=== PATIENT | female | born 1950 | race Caucasian/White ===

== ENCOUNTER → 2017-09-08 | Outpatient (CLI) | payer MEDICARE, OTHER ==
[2017-09-08 09:21] LABS: BASOPHILS # (AUTO) 0.1 10^3/uL (0.0-0.1); BASOPHILS % (AUTO) 1 % (0-10); EOSINOPHILS # (AUTO) 0.2 10^3/uL (0.0-0.3); EOSINOPHILS % (AUTO) 3 % (0-10); HEMATOCRIT 37 % (35-52); HEMOGLOBIN 12.7 G/DL (11.5-16.0); LYMPHOCYTES # (AUTO) 1.7 X 10^3 (1.0-4.0); LYMPHOCYTES % (AUTO) 36 % (12-44); MEAN CORPUSCULAR HEMOGLOBIN 32 PG (25-34); MEAN CORPUSCULAR HGB CONC 34 G/DL (32-36); MEAN CORPUSCULAR VOLUME 92 FL (80-99); MEAN PLATELET VOLUME 9.5 FL (7.4-10.4); MONOCYTES # (AUTO) 0.3 X 10^3 (0.0-1.0); MONOCYTES % (AUTO) 5 % (0-12); NEUTROPHILS # (AUTO) 2.6 X 10^3 (1.8-7.8); NEUTROPHILS % (AUTO) 54 % (42-75); PLATELET COUNT 297 10^3/uL (130-400); RED BLOOD COUNT 4.02 10^6/uL (4.35-5.85); RED CELL DISTRIBUTION WIDTH 13.6 % (10.0-14.5); WHITE BLOOD COUNT 4.8 10^3/uL (4.3-11.0)
[2017-09-08 09:39] LABS: ALBUMIN 3.9 GM/DL (3.2-4.5); BILIRUBIN,TOTAL 0.4 MG/DL (0.1-1.0); CALCIUM 9.4 MG/DL (8.5-10.1); CREATININE SERUM 0.97 MG/DL (0.60-1.30); POTASSIUM 4.5 MMOL/L (3.6-5.0); TOTAL PROTEIN 6.8 GM/DL (6.4-8.2)
== END ==
LOC: LAB 08:59
PROVIDERS: ATTEND Nurse Practitioner Family
DX: Z00.00 Encounter for general adult medical examination without abnormal findings (principal); I10 Essential (primary) hypertension; R53.83 Other fatigue
CPT/HCPCS: 36415; 80053; 80061; 84443; 85025

== ENCOUNTER 2018-09-23 14:48 | Emergency (ER) | payer MEDICARE, OTHER ==
[~2018-09-23] VITALS: Ht 167.6 cm; Wt 68.0 kg
[2018-09-23] MEDS ORDERED: NS IV 1000 ML 1,000 ML IV STA (14:59)
[2018-09-23] MEDS ORDERED: ASPIRIN 81 MG CHEW (CHILDREN'S ASA) PO ONE (15:00)
[2018-09-23 15:09] LABS: BASOPHILS % (AUTO) 1 % (0-10); EOSINOPHILS # (AUTO) 0.2 10^3/uL (0.0-0.3); EOSINOPHILS % (AUTO) 3 % (0-10); HEMATOCRIT 38 % (35-52); HEMOGLOBIN 12.7 G/DL (11.5-16.0); LYMPHOCYTES # (AUTO) 2.4 X 10^3 (1.0-4.0); LYMPHOCYTES % (AUTO) 39 % (12-44); MEAN CORPUSCULAR HEMOGLOBIN 31 PG (25-34); MEAN CORPUSCULAR HGB CONC 34 G/DL (32-36); MEAN CORPUSCULAR VOLUME 93 FL (80-99); MEAN PLATELET VOLUME 9.5 FL (7.4-10.4); MONOCYTES # (AUTO) 0.5 X 10^3 (0.0-1.0); MONOCYTES % (AUTO) 8 % (0-12); NEUTROPHILS # (AUTO) 3.1 X 10^3 (1.8-7.8); NEUTROPHILS % (AUTO) 50 % (42-75); PLATELET COUNT 305 10^3/uL (130-400); WHITE BLOOD COUNT 6.2 10^3/uL (4.3-11.0)
[2018-09-23 15:23] LABS: PROTHROMBIN TIME PATIENT 12.7 SEC (12.2-14.7)
[2018-09-23 15:30] LABS: ALANINE AMINOTRANSFERASE 22 U/L (0-55); ALBUMIN 4.2 GM/DL (3.2-4.5); ALKALINE PHOSPHATASE 105 U/L (40-136); BILIRUBIN,TOTAL 0.4 MG/DL (0.1-1.0); BUN/CREATININE RATIO 18; CALCIUM 9.5 MG/DL (8.5-10.1); CARBON DIOXIDE 23 MMOL/L (21-32); CHLORIDE 107 MMOL/L (98-107); CREATININE SERUM 1.09 MG/DL (0.60-1.30); GFR ESTIMATED 50; GLUCOSE 81 MG/DL (70-105); MAGNESIUM 2.6 MG/DL (1.8-2.4); POTASSIUM 4.1 MMOL/L (3.6-5.0); SODIUM 142 MMOL/L (135-145); TOTAL PROTEIN 6.9 GM/DL (6.4-8.2)
--- NOTE | 2018-09-23 15:30 | Diagnostic Imaging Report ---
INDICATION: Chest pain COMPARISON: None. FINDINGS: Single view of the chest demonstrate clear lungs bilaterally. The heart size is normal. There is no pneumothorax. Osseous structures are normal. IMPRESSION: No acute findings. Normal chest. Dictated by: Dictated on workstation # [id number]
--- NOTE | 2018-09-23 15:40 | NUR ---
PT RESTING QUIETLY, AT BEDSIDE. PT DENIES ANY C/O AT THIS TIME, PT DOES REPORT IMPROVEMENT. WARM BLANKET TO PT AT THIS TIME.
--- NOTE | 2018-09-23 15:55 | ED General ---
General Chief Complaint: Dizziness/Syncope Stated Complaint: CP/SOA Nursing Triage Note: PT TO ED W/ C/O BACK, SHOULDER, LT ARM ET CHEST PAIN ONSET X5-10 DAYS. ALSO C/ O SOB, DIAPHORESIS ET DIZZINESS ONSET TODAY [facility] PT APPEARS VERY ANXIOUS AT THIS TIME. Nursing Sepsis Screen: No Definite Risk Source of Information: Patient Exam Limitations: No Limitations History of Present Illness Date Seen by Provider: Sep 23, 2018 Time Seen by Provider: 14:50 Initial Comments Here with complaint of left-sided back pain is been going on for about 10 days and left arm pain that has also been going on for about 10 days but recently had about 5 days a left anterior chest pain and then dizziness today. States she was eating at the time and then got dizzy and felt anxious. Denies nausea, vomiting or diaphoresis but feels short of breath. States the shortness of breath has been increasing over the last several days as well. Timing/Duration: 1 Week Severity: Moderate Modifying Factors: improves with Rest Associated Systoms: No Chest Pain, No Cough, No Diaphoresis, No Fever/Chills, No Nausea/Vomiting; Shortness of Air, Weakness Allergies and Home Medications Allergies Coded Allergies: No Known Drug Allergies (Unverified , 09/23/18) Patient Home Medication List Home Medication List Reviewed: Yes Review of Systems Review of Systems Constitutional: see HPI; No chills, No fever EENTM: no symptoms reported Respiratory: short of breath; No wheezing Cardiovascular: chest pain; No palpitations Gastrointestinal: No abdominal pain, No nausea, No vomiting Genitourinary: no symptoms reported Musculoskeletal: see HPI, back pain, joint pain, muscle pain Skin: No change in color, No lesions Psychiatric/Neurological: No Symptoms Reported All Other Systems Reviewed Negative Unless Noted: Yes Past Mpzmgcw-Ajpexd-Oxvjey Hx Past Med/Social Hx: Reviewed Nursing Past Med/Soc Hx Patient Social History Alcohol Use: Denies Use Recreational Drug Use: No Smoking Status: Never a Smoker Recent Foreign Travel: No Contact w/Someone Who Travel: No Recent Infectious Disease Expo: No Physical Abuse: No Sexual Abuse: No Mistreated: No Fear: No Past Medical History Surgeries: No Respiratory: No Cardiac: Yes Hypertension Neurological: No Genitourinary: No Gastrointestinal: No Musculoskeletal: No Endocrine: No HEENT: No Cancer: No Psychosocial: No Integumentary: No Family Medical History Reviewed Nursing Family Hx No Pertinent Family Hx Physical Exam Vital Signs Vital Signs - First Documented 09/23/18 14:53 Temp 96.9 Pulse 66 Resp 22 B/P (MAP) 158/86 (110) Pulse Ox 100 O2 Delivery Room Air Capillary Refill : Less Than 3 Seconds Height, Weight, BMI Height: 5'6.00" Weight: 150lbs. oz. 68.139752li; BMI Method:Stated General Appearance: No Apparent Distress, WD/WN HEENT: PERRL/EOMI, Pharynx Normal Neck: Non Tender, Supple Respiratory: Lungs Clear, Normal Breath Sounds Cardiovascular: Regular Rate, Rhythm, No Murmur Gastrointestinal: Non Tender, Soft Back: Normal Inspection, No CVA Tenderness, No Vertebral Tenderness Extremity: Normal Range of Motion, Non Tender Neurologic/Psychiatric: Alert, Oriented x3 Skin: Normal Color, Warm/Dry Progress/Results/Core Measures Suspected Sepsis Recent Fever Within 48 Hours: No Infection Criteria Present: None New/Unexplained Altered Menta: No Sepsis Screen: No Definite Risk SIRS Temperature:96.9 Pulse: 66 Respiratory Rate: 22 Laboratory Tests 09/23/18 15:01: White Blood Count 6.2 Blood Pressure 158 /86 Mean: 110 Laboratory Tests 09/23/18 15:01: Creatinine 1.09, INR Comment 1.0, Platelet Count 305, Total Bilirubin 0.4 Results/Orders Lab Results Laboratory Tests Test 09/23/18 15:01 Range/Units White Blood Count 6.2 4.3-11.0 10^3/uL Red Blood Count 4.07 L 4.35-5.85 10^6/uL Hemoglobin 12.7 11.5-16.0 G/DL Hematocrit 38 35-52 % Mean Corpuscular Volume 93 80-99 FL Mean Corpuscular Hemoglobin 31 25-34 PG Mean Corpuscular Hemoglobin Concent 34 32-36 G/DL Red Cell Distribution Width 14.0 10.0-14.5 % Platelet Count 305 130-400 10^3/uL Mean Platelet Volume 9.5 7.4-10.4 FL Neutrophils (%) (Auto) 50 42-75 % Lymphocytes (%) (Auto) 39 12-44 % Monocytes (%) (Auto) 8 0-12 % Eosinophils (%) (Auto) 3 0-10 % Basophils (%) (Auto) 1 0-10 % Neutrophils # (Auto) 3.1 1.8-7.8 X 10^3 Lymphocytes # (Auto) 2.4 1.0-4.0 X 10^3 Monocytes # (Auto) 0.5 0.0-1.0 X 10^3 Eosinophils # (Auto) 0.2 0.0-0.3 10^3/uL Basophils # (Auto) 0.0 0.0-0.1 10^3/uL Prothrombin Time 12.7 12.2-14.7 SEC INR Comment 1.0 0.8-1.4 Activated Partial Thromboplast Time 29 24-35 SEC D-Dimer 0.84 H 0.00-0.49 UG/ML Sodium Level 142 135-145 MMOL/L Potassium Level 4.1 3.6-5.0 MMOL/L Chloride Level 107 98-107 MMOL/L Carbon Dioxide Level 23 21-32 MMOL/L Anion Gap 12 5-14 MMOL/L Blood Urea Nitrogen 20 H 7-18 MG/DL Creatinine 1.09 0.60-1.30 MG/DL Estimat Glomerular Filtration Rate 50 BUN/Creatinine Ratio 18 Glucose Level 81 70-105 MG/DL Calcium Level 9.5 8.5-10.1 MG/DL Corrected Calcium 9.3 8.5-10.1 MG/DL Magnesium Level 2.6 H 1.8-2.4 MG/DL Total Bilirubin 0.4 0.1-1.0 MG/DL Aspartate Amino Transf (AST/SGOT) 24 5-34 U/L Alanine Aminotransferase (ALT/SGPT) 22 0-55 U/L Alkaline Phosphatase 105 40-136 U/L Myoglobin 69.0 10.0-92.0 NG/ML Troponin I < 0.028 <0.028 NG/ML B-Type Natriuretic Peptide 56.8 <100.0 PG/ML Total Protein 6.9 6.4-8.2 GM/DL Albumin 4.2 3.2-4.5 GM/DL My Orders Orders - TON TAFOYA MD Cbc With Automated Diff (09/23/18 14:50) Magnesium (09/23/18 14:50) Chest 1 View, Ap/Pa Only (09/23/18 14:50) Ekg Tracing (09/23/18 14:50) Cardiac Profile 1 (2/3/19 14:50) Comprehensive Metabolic Panel (09/23/18 14:50) Myoglobin Serum (09/23/18 14:50) Protime With Inr (09/23/18 14:50) Partial Thromboplastin Time (09/23/18 14:50) O2 (09/23/18 14:50) Monitor-Rhythm Ecg Trace Only (09/23/18 14:50) Lipid Panel (09/24/18 06:00) Saline Lock/Iv-Start (09/23/18 14:50) Ns Iv 1000 Ml (Sodium Chloride 0.9%) (09/23/18 14:59) Aspirin Chewable Tablet (Baby Aspirin Ch (09/23/18 15:00) BNP (09/23/18 14:59) Fibrin Degradation Products (09/23/18 14:59) Medications Given in ED Current Medications Medications Dose Ordered Sig/Kika Route Start Time Stop Time Status Last Admin Dose Admin Aspirin 324 mg ONCE ONCE PO 09/23/18 15:00 09/23/18 15:01 DC 09/23/18 15:06 324 MG Vital Signs/I&O 09/23/18 14:53 Temp 96.9 Pulse 66 Resp 22 B/P (MAP) 158/86 (110) Pulse Ox 100 O2 Delivery Room Air Capillary Refill : Less Than 3 Seconds Blood Pressure Mean: 110 Progress Note : Progress Note Seen and evaluated. IV, labs, EKG and chest x-ray ordered. ASA 324 mg by mouth ordered. Normal saline 1 L bolus. Monitor patient. 1610: Overall much improved. No significant findings on labs, EKG or chest x-ray. Heart rate currently 65 with O2 sat 98 percent on room air and blood pressure 147/74. She will follow-up with her doctor and would like to see Dr. Hills. He is on-call currently. He sees her 's that she would like to follow-up with him. I will send a copy of the chart to Dr. Mayer. Discharged home with return precautions. Patient verbalize understanding instructions and agreement with plan. ECG Initial ECG Impression Date: Sep 23, 2018 Initial ECG Impression Time: 14:51 Initial ECG Rate: 70 Initial ECG Rhythm: Normal Sinus Comment Sinus rhythm with normal axis. No evidence of ST elevation VA. No previous available for comparison. Interpreted by me. Diagnostic Imaging Diagonstic Imaging: Xray Plain Films/CT/US/NM/MRI: chest Comments NAME: DELPHINE FRANKS [facility] REC#: [id number] PT STATUS: REG ER : 1950 PHYSICIAN: TON TAFOYA MD ADMIT DATE: 09/23/18/ER Signed Date of Exam: 09/23/18 CHEST 1 VIEW, AP/PA ONLY INDICATION: Chest pain COMPARISON: None. FINDINGS: Single view of the chest demonstrate clear lungs bilaterally. The heart size is normal. There is no pneumothorax. Osseous structures are normal. IMPRESSION: No acute findings. Normal chest. Dictated by: Dictated on workstation # [id number] Dict: 09/23/18 1530 Trans: 09/23/18 1530 Interpreted by: LAURA GRAY Electronically signed by: LAURA GRAY 09/23/18 1530 Departure Impression Primary Impression: Dizziness Additional Impression: Back pain Qualified Codes: M54.6 - Pain in thoracic spine Disposition: HOME, SELF-CARE Condition: Improved Departure-Patient Inst. Decision time for Depature: 16:14 Referrals: JERAMIE MAYER MD [facility] DWAIN ROQUE MD (PCP/Family) Primary Care Physician Patient Instructions: Dizziness, Nonvertigo, (DC), Upper Back Pain (DC) Add. Discharge Instructions: All discharge instructions reviewed with patient and/or family. Voiced understanding. Drink plenty of fluids. Eat a normal diet. You may take Advil 2 tablets every 6-8 hours as needed for pain. You may also take Tylenol/acetaminophen 1000 mg every 8 hours as needed for pain. Follow-up with your doctor this week for recheck. Follow-up with Dr. Mayer for recheck and further evaluation. Call his office in the morning. Return for worse pain, fever, vomiting, weakness, breathing problems or other concerns as needed. Copy Copies To 1: JERAMIE MAYER MD [facility] Copies To 2: DWAIN ROQUE MD, TIMOTHY D MD Sep 23, 2018 15:55
[2018-09-23 20:07] VITALS: BP 148/84
== END 2018-09-23 16:28 | disposition home or self-care (01) ==
LOC: EDUNIT# 14:48 → ER 14:49
DX: R42 Dizziness and giddiness (principal); M54.9 Dorsalgia, unspecified; R07.9 Chest pain, unspecified; I10 Essential (primary) hypertension
CPT/HCPCS: 36415; 71045; 80053; 83735; 83874; 83880; 84484; 85025; 85379; 85610; 85730; 93041

== ENCOUNTER 2020-04-10 13:17 | Outpatient (CLI) | payer MEDICARE, OTHER ==
[~2020-04-10] VITALS: Ht 167 cm; Wt 68.1 kg
[~2020-04-10 13:17] MED LIST: ENAL20TA PO; SIMV10TA PO
== END 2020-04-10 13:18 | disposition home or self-care (01) ==
LOC: PREOP 13:17
PROVIDERS: ATTEND Internal Medicine
DX: Z01.818 Encounter for other preprocedural examination (principal)

== ENCOUNTER 2020-04-17 07:19 | Day surgery (SDC) | payer MEDICARE, OTHER ==
--- NOTE | 2020-04-07 16:46 | HISTORY AND PHYSICAL ---
DATE OF SERVICE: HISTORY OF PRESENT ILLNESS: The patient is 70-year-old white female, referred for her first screening colonoscopy by Dr. Jeronimo. She previously had been on Dr. Salgado patient. The patient does report father succumbed to what she believes was colon cancer, widely metastatic. He was 72 years of age. She is not aware of any other family history for colon cancer or polyps. She reports no melena or bright red blood per rectum, bowel habit change, abdominal pain or change in weight. PAST SURGICAL HISTORY: Significant for tonsillectomy and adenoidectomy at the age of 3. SOCIAL HISTORY: The patient is retired. She has no past smoking or drinking history. FAMILY HISTORY: Mother at the age of 89 of vulvar carcinoma. Father at the age of 72, widely metastatic colon cancer. She has one sister alive and well. Three brothers, one has COPD and sleep apnea living at the age of 66, other 59 is HIV positive and one brother in his early 60s, alive and well. PAST MEDICAL HISTORY: Significant for hypertension and hyperlipidemia with no known history of vascular disease. PHYSICAL EXAMINATION: GENERAL: Reveals a white female, appears to be in no acute distress. VITAL SIGNS: Weight 153.4 pounds. Blood pressure 130/80. HEENT: Unremarkable. Mallampati 2 oropharyngeal configuration. CHEST: Clear to auscultation. CARDIOVASCULAR: Revealed a regular rate and rhythm without murmur, S3 or S4. ABDOMEN: Soft, supple without mass, organomegaly or tenderness. EXTREMITIES: Reveal no cyanosis, clubbing or edema. ASSESSMENT AND PLAN: The patient is set up for screening colonoscopy on 04/17/2020, deemed to be of higher than average risk, considering her father succumbed to colon cancer at the age of 72. Prep instructions with Suprep kit were given and questions were answered. I thank you for the referral of this pleasant lady. Job ID: [id number] DocumentID: [id number] Dictated Date: 04/06/2020 17:30:42 Heel Dipper Date: 04/06/2020 17:43:41 Dictated By: ANILA FITZPATRICK MD
[~2020-04-17] VITALS: Ht 167 cm; Wt 68.1 kg
[2020-04-17] VITALS (8 sets, daily range): BP systolic 84–148; BP diastolic 48–87
[~2020-04-17 07:19] MED LIST changes: +PROPOFOL INJECTION 50 ML IV ONE
[2020-04-17] MEDS ORDERED: LACTATED RINGERS 1,000 ML IV ONE ×2 (07:23→07:45)
[2020-04-17] MEDS ORDERED: LACTATED RINGERS 1,000 ML IV STA (07:24)
[2020-04-17] MEDS ORDERED: LIDOCAINE JELLY 2% 6 ML SYRINGE MM PRN (07:30)
[2020-04-17] MEDS ORDERED: LIDOCAINE JELLY 2% 6 ML SYRINGE ONE (07:55)
--- NOTE | 2020-04-17 08:31 | Pre-Op Note & Conscious Sedat ---
Pre-Operative Progress Note H&P Reviewed The H&P was reviewed, patient examined and no changes noted. Date H&P Reviewed: Apr 17, 2020 Time H&P Reviewed: 07:35 Conscious Sedation Pre-Proced ASA Score 2 For ASA 3 and 4: Consider anesthesia and medical clearance. Also, for patients with a history of failed moderate sedation consider anesthesia. Airway Lungs Heart ASA score ASA 1: a normal healthy patient ASA 2: a patient with a mild systemic disease (mid diabetes, controlled hypertension, obesity ASA 3: a patient with a severe systemic disease that limits activity (angina, COPD, prior Myocardial infarction) ASA 4: a patient with an incapacitating disease that is a constant threat to life (CHF, renal failure) ASA 5: a moribund patient not expected to survive 24 hrs. (ruptured aneurysm) ASA 6: a declared brain- patient whose organs are being harvested. For emergent operations, add the letter E after the classification Mallampati Classification Grade 2 Sedation Plan Analgesia, Amnesia, Plan communicated to team members, Discussed options with patient/fam, Discussed risks with patient/fam The patient is an appropriate candidate to undergo the planned procedure, sedation, and anesthesia. The patient immediately re-assessed prior to indication. ANILA FITZPATRICK MD Apr 17, 2020 08:31
--- NOTE | 2020-04-17 11:30 | Anesthesia-General Post-Op ---
MAC Patient Condition Mental Status/LOC: Same as Preop Cardiovascular: Satisfactory Nausea/Vomiting: Absent Respiratory: Satisfactory Pain: Controlled Complications: Absent Post Op Complications Complications None Follow Up Care/Instructions Patient Instructions None needed. Anesthesiology Discharge Order Discharge Order Patient is doing well, no complaints, stable vital signs, no apparent adverse anesthesia problems. No complications reported per nursing. NERY REYNA CRNA Apr 17, 2020 11:30
--- NOTE | 2020-04-17 17:19 | OPERATIVE REPORT ---
DATE OF SERVICE: COLONOSCOPY SUMMARY INDICATION FOR THE PROCEDURE: Screening colonoscopy. DESCRIPTION OF PROCEDURE: The patient was placed in the left lateral decubitus position. Prior to undergoing colonoscopy, digital rectal evaluation was performed. Anal sphincter tone was normal and the perianal reflex was intact. The patient did have a patch of perianal vitiligo. No abnormalities were noted on digital inspection of anal canal or distal rectal vault. The colonoscope was then inserted into the rectum and under direct visualization advanced to the cecum. The cecum was identified by identification of the ileocecal valve and cecal strap. Photographic documentation was obtained. Careful inspection was made as colonoscope was withdrawn. Quality of the prep was good. The patient tolerated the procedure well under Diprivan based anesthesia. FINDINGS: There was no evidence for internal or external hemorrhoids and the rectum was unremarkable. Haustral hypertrophy with a moderate number of small to medium size sigmoid diverticulum were present. No evidence for diverticulitis was noted. The descending colon, splenic flexure, transverse colon, hepatic flexure, ascending colon and cecum were unremarkable. ASSESSMENT: 1. Moderate diverticular disease confined to the sigmoid colon was present without evidence for diverticulitis. 2. No evidence for neoplasia was identified. Considering this patient's family history, I would advocate consideration for repeat screening colonoscopy in 5 years provided her health remains good. 3. The patient did have a patch of perianal vitiligo with no other perianal abnormalities being noted. Job ID: [id number] DocumentID: [id number] Dictated Date: 04/17/2020 09:20:04 Resource Recovery Engineer Date: 04/17/2020 17:18:34 Dictated By: ANILA FITZPATRICK MD
== END 2020-04-17 09:40 | disposition home or self-care (01) ==
LOC: ENDO 07:19
PROVIDERS: ATTEND Internal Medicine
DX: Z12.11 Encounter for screening for malignant neoplasm of colon (principal); K57.30 Diverticulosis of large intestine without perforation or abscess without bleeding; I10 Essential (primary) hypertension; E78.5 Hyperlipidemia, unspecified; Z79.899 Other long term (current) drug therapy; Z80.0 Family history of malignant neoplasm of digestive organs; Z80.49 Family history of malignant neoplasm of other genital organs

== ENCOUNTER 2020-12-03 09:14 | Outpatient (RCR) | payer MEDICARE, OTHER ==
[~2020-12-03 09:14] MED LIST changes: -ENAL20TA PO; +ENAL20TA16 PO; -PROPOFOL INJECTION 50 ML IV ONE
== END 2021-01-04 09:33 | disposition home or self-care (01) ==
PROVIDERS: ATTEND Internal Medicine
DX: R35.0 Frequency of micturition (principal); R29.898 Other symptoms and signs involving the musculoskeletal system

== ENCOUNTER → 2021-05-31 | Outpatient (CLI) | payer MEDICARE, OTHER ==
--- NOTE | 2021-05-31 13:26 | Diagnostic Imaging Report ---
INDICATION: Routine screening. Comparison is made with prior mammogram 11/18/2014. 2-D and 3-D bilateral screening mammography was performed with CAD. Both breasts are heterogeneously dense, limiting the sensitivity of mammography. There are scattered benign calcifications. No mass or malignant-appearing microcalcifications are seen. Axillae are unremarkable. IMPRESSION: BI-RADS Category 2 No mammographic features suspicious for malignancy are identified. ACR BI-RADS Category 2: Benign findings. Result letter will be mailed to the patient. Note: At least 10% of breast cancer is not imaged by mammography. Dictated by: Dictated on workstation # [id number]
== END ==
LOC: RAD 09:02
PROVIDERS: ATTEND Physician Assistant
DX: Z12.31 Encounter for screening mammogram for malignant neoplasm of breast (principal)
CPT/HCPCS: 77063; 77067

== ENCOUNTER → 2022-06-07 | Outpatient (CLI) | payer MEDICARE, OTHER ==
[~2022-06-07] MED LIST changes: +SIMV-332 PO; -SIMV10TA PO
--- NOTE | 2022-06-07 13:38 | Diagnostic Imaging Report ---
Indication: Routine screening. Comparison is made with prior mammogram from 05/31/2021 and 11/18/2014. 2-D and 3-D bilateral screening mammography was performed with CAD. CAD is utilized. The current study was also evaluated with a Computer Aided Detection (CAD) system. Both breasts are heterogeneously dense, limiting the sensitivity of mammography. There are occasional benign calcifications in both breasts. No mass or malignant-appearing microcalcifications are identified. The axillae are unremarkable. IMPRESSION: BI-RADS Category 2 No mammographic features suspicious for malignancy are identified. ACR BI-RADS Category 2: Benign findings. Result letter will be mailed to the patient. Note: At least 10% of breast cancer is not imaged by mammography. Dictated by: Dictated on workstation # [id number]
== END ==
LOC: RAD 07:55
PROVIDERS: ATTEND Physician Assistant
DX: Z12.31 Encounter for screening mammogram for malignant neoplasm of breast (principal)
CPT/HCPCS: 77063; 77067

== ENCOUNTER → 2022-08-05 | Outpatient (CLI) | payer MEDICARE, OTHER | LOC: CARD 09:07 | PROVIDERS: ATTEND Internal Medicine Cardiovascular Disease | DX: I35.1 Nonrheumatic aortic (valve) insufficiency (principal); I10 Essential (primary) hypertension; I25.10 Atherosclerotic heart disease of native coronary artery without angina pectoris | CPT/HCPCS: 93306 ==

== ENCOUNTER 2022-11-20 10:07 | Emergency (ER) | payer MEDICARE, OTHER ==
[~2022-11-20] VITALS: Ht 167.7 cm; Wt 70.3 kg
[2022-11-20] MEDS ORDERED: NS IV 500 ML 500 ML IV ONE ×2 (10:30→12:15)
--- NOTE | 2022-11-20 10:31 | ED General ---
General Chief Complaint: General Problems/Pain Stated Complaint: HEADACHE Nursing Triage Note: PT TO [facility] WITH C/O FEELING FAINT AT [facility] THIS MORNING AND A SMITH ALL MORNING. PT FEELS DIZZY. BS REPORTED FROM EMS WAS 125 Source of Information: Patient Exam Limitations: No Limitations History of Present Illness Date Seen by Provider: Nov 20, 2022 Time Seen by Provider: 10:11 Initial Comments Here by EMS reports that they were called due to patient nearly passing out in scientologist. On their arrival, she was laying on the pew and feeling a little bett er. They did check blood sugar and noted it to be 125. Overall she is feeling a little better now. She apparently did not eat breakfast this morning and did have a headache. She denies chest pain or breathing problems. She is feeling a little better now. Patient states that she was sitting in scientologist when she started feeling hot so she took off her jacket. She then started feeling dizzy and felt like she was going to pass out. Another one of her scientologist friends then asked if she was feeling all right and then had her lay down on the pew. That is when EMS was called. Patient denies nausea, vomiting, diarrhea or chest pain. Denies fever or chills. Timing/Duration: 1 Hour, Changing Over Time Severity: Moderate Modifying Factors: improves with Rest Associated Systoms: No Chest Pain, No Cough, No Fever/Chills; Headaches; No Nausea/Vomiting, No Shortness of Air; Syncope, Weakness Allergies and Home Medications Allergies Coded Allergies: No Known Drug Allergies (Unverified , 04/10/20) Patient Home Medication List Home Medication List Reviewed: Yes Enalapril Maleate (Enalapril Maleate) 20 Mg Tablet, 20 MG PO DAILY, (Reported) Entered as Reported by: ABILIO BENTON on 04/10/20 1316 Simvastatin (Zocor) 10 Mg Tablet, 10 MG PO DAILY, (Reported) Entered as Reported by: ABILIO BENTON on 04/10/20 1316 Review of Systems Review of Systems Constitutional: see HPI; No chills, No fever EENTM: no symptoms reported Respiratory: No cough, No short of breath Cardiovascular: see HPI; No chest pain, No palpitations Gastrointestinal: No nausea, No vomiting Genitourinary: no symptoms reported Musculoskeletal: back pain (Chronic spasm pain that is to the right side of her back up to her shoulder blade and down her back. She states that she has this frequently and that is not different. It may be a little worse today) Skin: no symptoms reported Psychiatric/Neurological: See HPI Past Otragek-Sevhst-Cpsldb Hx Patient Social History Tobacco Use?: No Use of E-Cig and/or Vaping dev: No Substance use?: No Alcohol Use?: No Pt feels they are or have been: No Immunizations Up To Date Tetanus Booster (TDap): Unknown Influenza Vaccine Up-to-Date: Yes; Up-to-Date First/Initial COVID19 Vaccinat: YES Second COVID19 Vaccination Isma: YES Seasonal Allergies Seasonal Allergies: Yes Past Medical History Surgery/Hospitalization HX: HTN TONSILS Surgeries: Yes Tonsillectomy Respiratory: No Cardiac: Yes High Cholesterol, Hypertension Neurological: No Sexually Transmitted Disease: No HIV/AIDS: No Genitourinary: No Gastrointestinal: No Musculoskeletal: No Endocrine: No HEENT: Yes (GLASSES, PARTIAL DENTURE) Loss of Vision: Denies Hearing Impairment: Denies Cancer: No Psychosocial: No Integumentary: No Blood Disorders: No Adverse Reaction/Blood Tranf: No (N/A) Family Medical History Reviewed Nursing Family Hx No Pertinent Family Hx Physical Exam Vital Signs Vital Signs - First Documented 11/20/22 10:10 Temp 36.4 Pulse 65 Resp 24 B/P (MAP) 130/87 (101) Capillary Refill : Height, Weight, BMI Height: 5'6.00" Weight: 150lbs. oz. 68.957397fx; 24.00 BMI Method:Stated General Appearance: No Apparent Distress, WD/WN HEENT: PERRL/EOMI, Pharynx Normal Neck: Non Tender, Supple Respiratory: Lungs Clear, Normal Breath Sounds Cardiovascular: Regular Rate, Rhythm, No Murmur Gastrointestinal: Non Tender, Soft Extremity: Normal Range of Motion, Non Tender Neurologic/Psychiatric: Alert, Oriented x3 Skin: Normal Color, Warm/Dry Progress/Results/Core Measures Suspected Sepsis SIRS Temperature: Pulse: 65 Respiratory Rate: 24 Laboratory Tests 11/20/22 10:32: White Blood Count 8.3 Blood Pressure 130 /87 Mean: 101 Laboratory Tests 11/20/22 10:32: Creatinine 1.55H, Platelet Count 318, Total Bilirubin 0.6 Results/Orders Lab Results Laboratory Tests Test 11/20/22 10:32 11/20/22 11:25 Range/Units White Blood Count 8.3 4.3-11.0 10^3/uL Red Blood Count 3.78 L 3.80-5.11 10^6/uL Hemoglobin 12.1 11.5-16.0 g/dL Hematocrit 35 35-52 % Mean Corpuscular Volume 91 80-99 fL Mean Corpuscular Hemoglobin 32 25-34 pg Mean Corpuscular Hemoglobin Concent 35 32-36 g/dL Red Cell Distribution Width 13.1 10.0-14.5 % Platelet Count 318 130-400 10^3/uL Mean Platelet Volume 9.2 9.0-12.2 fL Immature Granulocyte % (Auto) 0 % Neutrophils (%) (Auto) 72 42-75 % Lymphocytes (%) (Auto) 21 12-44 % Monocytes (%) (Auto) 5 0-12 % Eosinophils (%) (Auto) 1 0-10 % Basophils (%) (Auto) 1 0-10 % Neutrophils # (Auto) 6.0 1.8-7.8 10^3/uL Lymphocytes # (Auto) 1.8 1.0-4.0 10^3/uL Monocytes # (Auto) 0.4 0.0-1.0 10^3/uL Eosinophils # (Auto) 0.1 0.0-0.3 10^3/uL Basophils # (Auto) 0.0 0.0-0.1 10^3/uL Immature Granulocyte # (Auto) 0.0 0.0-0.1 10^3/uL Sodium Level 140 135-145 MMOL/L Potassium Level 4.3 3.6-5.0 MMOL/L Chloride Level 110 H 98-107 MMOL/L Carbon Dioxide Level 18 L 21-32 MMOL/L Anion Gap 12 5-14 MMOL/L Blood Urea Nitrogen 19 H 7-18 MG/DL Creatinine 1.55 H 0.60-1.30 MG/DL Estimat Glomerular Filtration Rate 35 BUN/Creatinine Ratio 12 Glucose Level 105 70-105 MG/DL Calcium Level 9.4 8.5-10.1 MG/DL Corrected Calcium 9.4 8.5-10.1 MG/DL Total Bilirubin 0.6 0.1-1.0 MG/DL Aspartate Amino Transf (AST/SGOT) 20 5-34 U/L Alanine Aminotransferase (ALT/SGPT) 22 0-55 U/L Alkaline Phosphatase 82 40-136 U/L Troponin I < 0.028 <0.028 NG/ML Total Protein 6.6 6.4-8.2 GM/DL Albumin 4.0 3.2-4.5 GM/DL Urine Color YELLOW Urine Clarity CLEAR Urine pH 8.0 5-9 Urine Specific [place] 1.015 L 1.016-1.022 Urine Protein TRACE H NEGATIVE Urine Glucose (UA) NEGATIVE NEGATIVE Urine Ketones NEGATIVE NEGATIVE Urine Nitrite NEGATIVE NEGATIVE Urine Bilirubin NEGATIVE NEGATIVE Urine Urobilinogen 0.2 < = 1.0 MG/DL Urine Leukocyte Esterase 2+ H NEGATIVE Urine RBC (Auto) NEGATIVE NEGATIVE Urine RBC NONE /HPF Urine WBC 2-5 /HPF Urine Squamous Epithelial Cells 5-10 /HPF Urine Crystals NONE /LPF Urine Bacteria NEGATIVE /HPF Urine Casts PRESENT /LPF Urine Hyaline Casts 5-10 H /LPF Urine Mucus NEGATIVE /LPF Urine Culture Indicated NO My Orders Orders - TON TAFOYA MD Cbc With Automated Diff (11/20/22 10:17) Comprehensive Metabolic Panel (11/20/22 10:17) Troponin I [place] (11/20/22 10:17) Ua Culture If Indicated (11/20/22 10:17) Chest 1 View, Ap/Pa Only (11/20/22 10:17) Ekg Tracing (11/20/22 10:17) Monitor-Rhythm Ecg Trace Only (11/20/22 10:17) Ed Iv/Invasive Line Start (11/20/22 10:17) Ns Iv 500 Ml (Sodium Chloride 0.9%) (11/20/22 10:30) Ed Iv/Invasive Line Start (11/20/22 12:07) Ns Iv 500 Ml (Sodium Chloride 0.9%) (11/20/22 12:15) Ketorolac Injection (Toradol Injection) (11/20/22 12:07) Medications Given in ED Current Medications Medications Dose Ordered Sig/Kika Route Start Time Stop Time Status Last Admin Dose Admin Sodium Chloride 500 ml @ 0 mls/hr Q0M ONCE IV 11/20/22 10:30 11/20/22 10:31 DC 11/20/22 10:33 1,000 MLS/HR Sodium Chloride 500 ml @ 0 mls/hr Q0M ONCE IV 11/20/22 12:15 11/20/22 12:16 DC 11/20/22 12:22 1,000 MLS/HR Vital Signs/I&O 11/20/22 10:10 Temp 36.4 Pulse 65 Resp 24 B/P (MAP) 130/87 (101) Capillary Refill : Blood Pressure Mean: 101 Progress Note : Progress Note Seen and evaluated. IV, labs including CBC, CMP, magnesium and troponin ordered. Normal saline 500 mL bolus. EKG and chest x-ray ordered. Monitor patient. Differential includes cardiac event, electrolyte abnormality, dehydration, UTI 1120: Remains improved. Chest x-ray reviewed by me and shows no acute findings. EKG done and compared to 09/23/2018 and shows no acute findings. See below for interpretation. CBC is grossly normal. Chemistry does show slight elevation of serum creatinine which is greater than previous as she is normally normal. Creatinine level right now is 1.55. Troponin is negative. Pending UA. Monitor patient. 1142: Patient has asked for and was given water to drink. She tolerated that well. 1210: We will go ahead and repeat normal saline 500 mL bolus and give Toradol 15 mg IV. Patient feels comfortable going after that. We did discuss [id number]-giv-[id number] therapy for her back pain. I believe this was dehydration that caused the event. This was discussed with the patient. Discharged home with return precautions. Patient verbalized understanding instructions and agreement with plan. ECG Initial ECG Impression Date: Nov 20, 2022 Initial ECG Impression Time: 10:26 Initial ECG Rate: 61 Initial ECG Rhythm: Normal Sinus Comment Sinus rhythm with normal axis. No evidence of ST elevation [place]. Similar to pre vious of 09/23/2018. Interpreted by me. Diagnostic Imaging Diagonstic Imaging: Xray Plain Films/CT/US/NM/MRI: chest Comments [facility], [place] NAME: DELPHINE FRANKS Alexi [facility] REC#: [id number] PT STATUS: REG ER : 1950 PHYSICIAN: TON TAFOYA MD ADMIT DATE: 11/20/22/ER Draft Date of Exam:04/02/23 CHEST 1 VIEW, AP/PA ONLY INDICATION: Followup dizziness and presyncopal episode. COMPARISON: 09/23/2018. DISCUSSION: A single portable upright view of the chest was obtained. Elevated right hemidiaphragm. Normal heart size. No consolidation, pleural fluid, or pneumothorax. No osseous abnormality. IMPRESSION: Negative chest. Dictated on workstation # [id number] Dict: 11/20/22 1100 Trans: 11/20/22 1112 [id number] Interpreted by: PHYLLIS JUAREZ MD Electronically signed by: Departure Impression Primary Impression: Dehydration Additional Impression: Dizziness Disposition: HOME, SELF-CARE Condition: Improved Departure-Patient Inst. Decision time for Depature: 12:13 Referrals: ZAYNAB ASHTON MD (PCP/Family) Primary Care Physician Patient Instructions: Dizziness, Adult ED, Dehydration, Adult (DC) Add. Discharge Instructions: All discharge instructions reviewed with patient and/or family. Voiced understanding. Treat plenty of fluids by taking small sips frequently. Follow-up with your doctor in a few days for recheck. Continue home medications as previously prescribed. You may use [id number] IcyHot with lidocaine cream, Aspercreme with lidocaine cream or similar agents to area of back pain per package directions. Return for worse pain, fever, vomiting, weakness, breathing problems or other concerns as needed. TON TAFOYA MD Nov 20, 2022 10:31
[2022-11-20 10:40] LABS: HEMATOCRIT 35 % (35-52); HEMOGLOBIN 12.1 g/dL (11.5-16.0); WHITE BLOOD COUNT 8.3 10^3/uL (4.3-11.0)
[2022-11-20 10:41] LABS: BASOPHILS % (AUTO) 1 % (0-10); EOSINOPHILS # (AUTO) 0.1 10^3/uL (0.0-0.3); EOSINOPHILS % (AUTO) 1 % (0-10); LYMPHOCYTES # (AUTO) 1.8 10^3/uL (1.0-4.0); LYMPHOCYTES % (AUTO) 21 % (12-44); MEAN CORPUSCULAR HEMOGLOBIN 32 pg (25-34); MEAN CORPUSCULAR HGB CONC 35 g/dL (32-36); MEAN CORPUSCULAR VOLUME 91 fL (80-99); MEAN PLATELET VOLUME 9.2 fL (9.0-12.2); MONOCYTES # (AUTO) 0.4 10^3/uL (0.0-1.0); MONOCYTES % (AUTO) 5 % (0-12); NEUTROPHILS % (AUTO) 72 % (42-75); PLATELET COUNT 318 10^3/uL (130-400)
[2022-11-20 10:51] LABS: CHLORIDE 110 MMOL/L (98-107); POTASSIUM 4.3 MMOL/L (3.6-5.0); SODIUM 140 MMOL/L (135-145)
[2022-11-20 10:52] LABS: CALCIUM 9.4 MG/DL (8.5-10.1)
[2022-11-20 10:53] LABS: GLUCOSE 105 MG/DL (70-105); TOTAL PROTEIN 6.6 GM/DL (6.4-8.2)
[2022-11-20 10:54] LABS: CARBON DIOXIDE 18 MMOL/L (21-32)
[2022-11-20 10:55] LABS: BILIRUBIN,TOTAL 0.6 MG/DL (0.1-1.0)
[2022-11-20 10:56] LABS: ALKALINE PHOSPHATASE 82 U/L (40-136)
[2022-11-20 10:57] LABS: CREATININE SERUM 1.55 MG/DL (0.60-1.30); GFR ESTIMATED 35
[2022-11-20 10:58] LABS: BUN/CREATININE RATIO 12
[2022-11-20 11:00] LABS: ALANINE AMINOTRANSFERASE 22 U/L (0-55)
--- NOTE | 2022-11-20 11:13 | Diagnostic Imaging Report ---
INDICATION: Followup dizziness and presyncopal episode. COMPARISON: 09/23/2018. DISCUSSION: A single portable upright view of the chest was obtained. Elevated right hemidiaphragm. Normal heart size. No consolidation, pleural fluid, or pneumothorax. No osseous abnormality. IMPRESSION: Negative chest. Dictated by: Dictated on workstation # [id number]
[2022-11-20 11:34] LABS: BILIRUBIN,URINE NEGATIVE (NEGATIVE); CLARITY,URINE CLEAR; COLOR,URINE YELLOW; GLUCOSE, URINE (UA) NEGATIVE (NEGATIVE); KETONES,URINE NEGATIVE (NEGATIVE); LEUKOCYTE ESTERASE ,URINE 2+ (NEGATIVE); NITRITE,URINE NEGATIVE (NEGATIVE); PROTEIN,URINE TRACE (NEGATIVE)
[2022-11-20 11:40] LABS: BACTERIA,URINE NEGATIVE /HPF
[2022-11-20] MEDS ORDERED: KETOROLAC 30 MG/ML VIAL IVP STA (12:07)
[2022-11-20 13:14] VITALS: BP 101/81
== END 2022-11-20 13:17 | disposition home or self-care (01) ==
LOC: EDUNIT# 10:07 → ER 10:08
DX: E86.0 Dehydration (principal); R79.89 Other specified abnormal findings of blood chemistry; M54.50 Low back pain, unspecified
CPT/HCPCS: 36415; 71045; 80053; 81000; 84484; 85025; 93005; 93041

== ENCOUNTER → 2023-06-09 | Outpatient (CLI) | payer MEDICARE, OTHER ==
[~2023-06-09] MED LIST changes: +ENAL-70 PO; -ENAL20TA16 PO
--- NOTE | 2023-06-09 10:09 | Diagnostic Imaging Report ---
Indication: Routine screening. Comparison is made with prior mammograms 06/07/2022 and 05/31/2021. 2-D and 3-D bilateral screening mammography was performed with CAD. Both breasts are heterogeneously dense, limiting the sensitivity of mammography. The parenchymal pattern is stable. No mass or malignant-appearing microcalcification are seen. There are benign calcifications bilaterally. Axillae are unremarkable. IMPRESSION: BI-RADS Category 2 No mammographic features suspicious for malignancy are identified. ACR BI-RADS Category 2: Benign findings. Result letter will be mailed to the patient. Note: At least 10% of breast cancer is not imaged by mammography. Dictated by: Dictated on workstation # [id number]
== END ==
LOC: RAD 08:31
PROVIDERS: ATTEND Internal Medicine
DX: Z12.31 Encounter for screening mammogram for malignant neoplasm of breast (principal)
CPT/HCPCS: 77063; 77067